=== PATIENT | male | born 1965 | race American Indian/Alaskan Native ===

== ENCOUNTER 2016-07-04 20:48 | Emergency (ER) | payer BC ==
--- NOTE | 2016-07-04 23:00 | Cat Scan Report ---
FINAL REPORT PROCEDURE: CT HEAD/BRAIN WO CON TECHNIQUE: Computerized tomography of the head was performed without contrast material. HISTORY: headache, eye pain COMPARISON: No prior studies are available for comparison. FINDINGS: No CT evidence of intracranial mass, hemorrhage, acute territorial infarction, or hydrocephalus. The intracranial arteries are symmetric in density. Calvarium is intact. The visualized paranasal sinuses and mastoids are aerated. IMPRESSION: No CT evidence of acute intracranial disease process
[2016-07-05] MEDS ORDERED: TYLENOL ONE (02:03)
--- NOTE | 2016-07-05 02:12 | Emergency Department Report ---
ED Headache HPI - General Chief Complaint: Headache Stated Complaint: HEAD PAIN, LEFT EYE PAIN Time Seen by Provider: 07/05/16 01:57 Source: patient, family Exam Limitations: no limitations - History of Present Illness Initial Comments: Patient here reported headache of the roof his head since Sunday. Also said he is having pressure around his left eye and face feel achy. Pain is 6 out of 10. Denies any head injury. Denies any nausea or vomiting. Reports nasal congestion with some coughing. Patient has a history of sinusitis. He has no other medical problems. No fever or chills. Denies any shortness of breath or chest pain. Denies dizziness or blurred vision. Timing/Duration: waxing and waning, other (2 days) Quality: moderate, achy Head Injury Location: frontal, occipital Recent Head Trauma: no recent headache/trauma Modifying Factors: improves with: rest Associated Symptoms: facial pain, nasal congestion, nasal drainage, sinus infection. denies: confusion, fatigue, fever/chills, flushing, loss of consciousness, nausea/vomiting, numbness in legs/feet, rash, seizures, stiff neck, vision changes, weakness, other Allergies/Adverse Reactions: Allergies No Known Allergies Allergy (Unverified 03/02/14 12:56) Home Medications: Ambulatory Orders Cyclobenzaprine HCl [Flexeril 5mg] 5 mg PO Q8HR #30 tablet 03/02/14 HYDROcodone/APAP 5-325 [[place] 5/325] 1 each PO Q6HR PRN #20 tablet 03/02/14 Naproxen [Naprosyn] 500 mg PO BID #30 tablet 03/02/14 Fluticasone [Flonase] 1 spray NS QDAY #1 bottle 07/05/16 Loratadine [Claritin] 10 mg PO DAILY #20 tablet 07/05/16 predniSONE [Deltasone] 20 mg PO QDAY #5 tab 07/05/16 ED Review of Systems ROS: Stated complaint: HEAD PAIN, LEFT EYE PAIN Other details as noted in HPI Comment: All other systems reviewed and negative Constitutional: denies: chills, fever Eyes: denies: eye pain, eye discharge, vision change ENT: congestion. denies: ear pain, throat pain Respiratory: cough. denies: shortness of breath, SOB with exertion, SOB at rest , stridor, wheezing Cardiovascular: denies: chest pain, palpitations, edema, syncope Gastrointestinal: denies: abdominal pain, nausea, vomiting, diarrhea Musculoskeletal: denies: back pain, arthralgia Skin: denies: rash Neurological: headache. denies: weakness, numbness, paresthesias, confusion, abnormal gait, vertigo ED Past Medical Hx - Past Medical History Previous Medical History?: Yes Additional medical history: seasonal sinus - Surgical History Past Surgical History?: Yes Additional Surgical History: Left 5th digit surgical repair - Family History Family history: no significant - Social History Smoking Status: Never Smoker Substance Use Type: Alcohol - Medications Home Medications: Home Medications Medication Instructions Recorded Confirmed Last Taken Type Cyclobenzaprine HCl [Flexeril 5mg] 5 mg PO Q8HR #30 tablet 03/02/14 Unknown Rx HYDROcodone/APAP 5-325 [[place] 1 each PO Q6HR PRN #20 tablet 03/02/14 Unknown Rx 5/325] Naproxen [Naprosyn] 500 mg PO BID #30 tablet 03/02/14 Unknown Rx Fluticasone [Flonase] 1 spray NS QDAY #1 bottle 07/05/16 Unknown Rx Loratadine [Claritin] 10 mg PO DAILY #20 tablet 07/05/16 Unknown Rx predniSONE [Deltasone] 20 mg PO QDAY #5 tab 07/05/16 Unknown Rx ED Physical Exam - General Limitations: No Limitations General appearance: alert, in no apparent distress - Head Head exam: Present: atraumatic, normocephalic, normal inspection - Expanded Head Exam Expanded Head exam: Absent: laceration, abrasion, contusion, hematoma, racoon eyes, mahajan's sign, general tenderness, tenderness of temporal artery, CSF rhinorrhea , CSF otorrhea - Eye Eye exam: Present: normal appearance, PERRL, EOMI. Absent: conjunctival injection, nystagmus, periorbital swelling, periorbital tenderness Pupils: Present: normal accommodation - ENT ENT exam: Present: normal orophraynx, mucous membranes moist, normal external ear exam, other (bilateral frontal and maxillary sinuses nontender to palpate. Bilateral nasal mucosa congested with erythema and clear drainage.). Absent: TM 's normal bilaterally (bilateral TM congested without erythema.) - Neck Neck exam: Present: normal inspection, full ROM. Absent: tenderness, meningismus, lymphadenopathy - Respiratory Respiratory exam: Present: normal lung sounds bilaterally. Absent: respiratory distress - Cardiovascular Cardiovascular Exam: Present: regular rate, normal rhythm, normal heart sounds - Extremities Exam Extremities exam: Present: normal inspection, full ROM, normal capillary refill. Absent: tenderness, pedal edema, joint swelling, calf tenderness - Back Exam Back exam: Present: normal inspection, full ROM. Absent: tenderness, CVA tenderness (R), CVA tenderness (L), muscle spasm, paraspinal tenderness, vertebral tenderness, rash noted - Neurological Exam Neurological exam: Present: alert, oriented X3, normal gait, reflexes normal. Absent: motor sensory deficit - Expanded Neurological Exam Expanded Neurological exam: Absent: innattentive, memory loss-remote event, memory loss- recent event, ataxia, receptive aphasia, expressive aphasia, total aphasia, tremor, protecting the airway Patient oriented to: Present: person, place, time Speech: Present: fluid speech Cranial nerves: EOM's Intact: Normal, Gag Reflex: Normal, Nystagmus: Normal, Facial Sensation: Normal Cerebellar function: Romberg: Normal Upper motor neuron: Pronator Drift: Normal, Sensory Extinction: Normal Sensory exam: Upper Extremity Light Touch: Normal, Upper Extremity Temperature: Normal, UE 2 Point Discrimination: Normal, Lower Extremity Light Touch: Normal, Lower Extremity Temperature: Normal, LE 2 Point Discrimination: Normal Motor strength exam: RUE: 5, LUE: 5, RLE: 5, LLE: 5 DTR: bicep (R): 2+, bicep (L): 2+, tricep (R): 2+, tricep (L): 2+, knee (R): 2+ , knee (L): 2+, ankle (R): 2+, ankle (L): 2+ Best Eye Response (Benigno): (4) open spontaneously Best Motor Response ([place]): (6) obeys commands Best Verbal Response ([place]): (5) oriented Benigno Total: 15 - Psychiatric Psychiatric exam: Present: normal affect, normal mood - Skin Skin exam: Present: warm, dry, intact, normal color. Absent: rash ED Course Vital Signs 07/04/16 22:34 Temperature 99.1 F Pulse Rate 97 H Respiratory 18 Rate Blood Pressure 144/77 O2 Sat by Pulse 96 Oximetry - Reevaluation(s) Reevaluation #1: 07/05/16 02:54 Patient remained stable through the ED stay. ED Medical Decision Making - Radiology Data Radiology results: report reviewed CT scan of the head reveals no acute intracranial disease processes. - Medical Decision Making ED course: Discussed with patient that he had a sinus infection and will be treated with prednisone, Flonase and Claritin. I discussed the CT scan results with him. I instructed him that he will need to follow-up with his primary care physician if headache continues. She was understanding of discharge instructions and discharged home with prescription for prednisone, Flonase and Claritin. Critical care attestation.: If time is entered above; I have spent that time in minutes in the direct care of this critically ill patient, excluding procedure time. ED Disposition Clinical Impression: Sinus headache Acute inflammation of sinus Qualifiers: Sinusitis location: unspecified location Recurrence: not specified as recurrent Qualified Code(s): J01.90 - Acute sinusitis, unspecified Disposition: DISCHARGED TO HOME OR SELFCARE Is pt being admited?: No Does the pt Need Aspirin: No Condition: Stable Instructions: Sinusitis (ED), Acute Headache (ED) Additional Instructions: Please use saline nasal wash to flush your nose. Take medication as prescribed. Prescriptions: Loratadine [Claritin] 10 mg PO DAILY #20 tablet predniSONE [Deltasone] 20 mg PO QDAY #5 tab Fluticasone [Flonase] 1 spray NS QDAY #1 bottle Referrals: PRIMARY CAREMD [Primary Care Provider] - 07/06/16 Forms: Work/School Release Form(ED)
[2016-07-05 03:12] VITALS: BP 138/76
== END 2016-07-05 03:14 | disposition home or self-care (01) ==
LOC: ED 20:48
DX: J01.90 Acute sinusitis, unspecified (principal); R51 Headache
CPT/HCPCS: 70450

== ENCOUNTER 2019-08-06 12:02 | Emergency (ER) | payer BC ==
[2019-08-06 12:52] VITALS: BP 148/94
--- NOTE | 2019-08-06 13:00 | Event Note ---
ED Screening Note Date of service: 08/06/19 Time: 12:59 ED Screening Note: 54 y o male presents to ED cc of right big toe pain x several days He denies hx of Gout DM, injury, trauma or fall no signs of deformity to right toes, no swelling, no erythema, no laceration This initial assessment/diagnostic orders/clinical plan/treatment(s) is/are subject to change based on patients health status, clinical progression and re- assessment by fellow clinical providers in the ED. Further treatment and workup at subsequent clinical providers discretion. Patient/guardian urged not to elope from the ED as their condition may be serious if not clinically assessed and managed. Initial orders include: Referral to PCP Pt presents with a non-medical emergency Examination is normal, Vital sign are stable Pt given information for clinics to follow up with pcp for further treatment and evaluation Also discussed strict return precautions in detail with pt who verbalized understanding
== END 2019-08-06 14:02 | disposition home or self-care (01) ==
LOC: ED 12:02
DX: M79.674 Pain in right toe(s) (principal); M79.89 Other specified soft tissue disorders; Z98.890 Other specified postprocedural states
CPT/HCPCS: 99282

== ENCOUNTER 2022-01-27 15:07 | Emergency (ER) | payer BC ==
[2022-01-27] MEDS ORDERED: ACETAMINOPHEN 325 MG TAB PO ONE (21:29)
[2022-01-27] MEDS ORDERED: IBUPROFEN 400 MG TAB PO ONE (21:29)
--- NOTE | 2022-01-27 21:34 | Emergency Department Report ---
ED General Adult HPI - General Chief complaint: Extremity Injury, Lower Stated complaint: FOOT PAIN PUI?: No Time Seen by Provider: 01/27/22 21:16 Source: patient, RN notes reviewed Mode of arrival: Ambulatory Limitations: No Limitations - History of Present Illness Initial comments: The patient was evaluated in the emergency department for symptoms described in the history of present illness. He/she was evaluated in the context of the global COVID-19 pandemic, which necessitated consideration that the patient might be at risk for infection with the virus that causes COVID-19. Institutional protocols and algorithms that pertain to the evaluation of patients at risk for COVID-19 are in a state of rapid change based on in formation released by regulatory bodies including the CDC and federal and state organizations. These policies and algorithms were followed during the patient's care in the emergency department. Please note that these policies, procedures and recommendations changed on a rapid basis. 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 Pain is aching, increases with palpation, range of motion, decreases with rest in certain positions. He has taken Tylenol [id number] for pain. He denies additional injuries and complaints. -: week(s) Location: left, right, lower extremity Radiation: non-radiation Severity scale (0 -10): 8 Quality: aching Consistency: intermittent Improves with: rest Worsens with: movement Associated Symptoms: denies other symptoms - Related Data Previous Rx's Medication Instructions Recorded Last Taken Type Fluticasone [Flonase] 1 spray NS QDAY #1 bottle 07/05/16 Unknown Rx Loratadine (Nf) [Claritin] 10 mg PO DAILY #20 tablet 07/05/16 Unknown Rx predniSONE [Deltasone] 20 mg PO QDAY #5 tab 07/05/16 Unknown Rx Acetaminophen [Non-Aspirin Extra 500 mg PO Q6HR PRN #30 tablet 01/27/22 Unknown Rx Strength] Ibuprofen [Motrin] 600 mg PO Q8H PRN #30 tablet 01/27/22 Unknown Rx Allergies Allergy/AdvReac Type Severity Reaction Status Date / Time No Known Allergies Allergy Verified 01/27/22 16:21 ED Review of Systems ROS: Stated complaint: FOOT PAIN Other details as noted in HPI Comment: All other systems reviewed and negative Musculoskeletal: myalgia ED Past Medical Hx - Past Medical History Additional medical history: seasonal sinus - Surgical History Additional Surgical History: Left 5th digit surgical repair - Social History Smoking Status: Never Smoker Substance Use Type: None - Medications Home Medications: Home Medications Medication Instructions Recorded Confirmed Last Taken Type Fluticasone [Flonase] 1 spray NS QDAY #1 bottle 07/05/16 Unknown Rx Loratadine (Nf) [Claritin] 10 mg PO DAILY #20 tablet 07/05/16 Unknown Rx predniSONE [Deltasone] 20 mg PO QDAY #5 tab 07/05/16 Unknown Rx Acetaminophen [Non-Aspirin Extra 500 mg PO Q6HR PRN #30 tablet 01/27/22 Unknown Rx Strength] Ibuprofen [Motrin] 600 mg PO Q8H PRN #30 tablet 01/27/22 Unknown Rx ED Physical Exam - General Limitations: No Limitations General appearance: alert, in no apparent distress, obese - Head Head exam: Present: atraumatic, normocephalic - Eye Eye exam: Present: normal appearance, EOMI. Absent: nystagmus - ENT ENT exam: Present: normal exam, normal orophraynx, mucous membranes moist, normal external ear exam - Neck Neck exam: Present: normal inspection, full ROM. Absent: tenderness, meningismus - Respiratory Respiratory exam: Present: normal lung sounds bilaterally. Absent: respiratory distress, wheezes, rales, rhonchi, stridor, decreased breath sounds - Cardiovascular Cardiovascular Exam: Present: regular rate, normal rhythm, normal heart sounds. Absent: bradycardia, tachycardia, irregular rhythm, systolic murmur, diastolic murmur, rubs, gallop - GI/Abdominal GI/Abdominal exam: Present: soft. Absent: distended, tenderness, guarding, rebound, rigid, pulsatile mass - Rectal Rectal exam: Present: deferred - Extremities Exam Extremities exam: Present: normal inspection, full ROM, tenderness (There is bilateral plantar foot tenderness. There is no redness, pus, streaking. Muscular compartments are soft), other (2+ pulses noted in the bilateral upper and lower extremities. There is no palpable cord. negative Homans sign. Muscular compartments are soft. The pelvis is stable.). Absent: pedal edema, calf tenderness - Back Exam Back exam: Present: normal inspection, full ROM. Absent: tenderness, CVA tender ness (R), CVA tenderness (L), muscle spasm, paraspinal tenderness, vertebral tenderness - Neurological Exam Neurological exam: Present: alert, oriented X3, normal gait, other (No facial droop. Tongue midline. Extraocular movements intact bilaterally. Facial sensation intact to light touch in V1, V2, V3 distribution bilaterally. 5 and a 5 strength in 4 extremities. Sensation intact to light touch in 4 extremities.). Absent: motor sensory deficit - Psychiatric Psychiatric exam: Present: normal affect, normal mood - Skin Skin exam: Present: warm, dry, intact, normal color. 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 Rest, ice, compression, elevation, weightbearing as tolerated, supportive footwear. Patient does not appear to have an emergent medical condition present at this time. All questions answered. Return precautions are reviewed. Discussed therapies, remedies, rehab techniques. Patient endorses understanding. Critical care attestation.: If time is entered above; I have spent that time in minutes in the direct care of this critically ill patient, excluding procedure time. ED Disposition Clinical Impression: Foot pain, bilateral Disposition: HOME / SELF CARE / HOMELESS Is pt being admited?: No Does the pt Need Aspirin: No Condition: Good Instructions: Plantar Fasciitis Additional Instructions: Patient most likely has plantar fasciitis. Patient may look up exercises to rehabilitate plantar fasciitis on YouTube. Also recommend supportive footwear, or purchase of heel inserts. Patient may take a 5 to 10-minute break once every 90 to 120 minutes while at work. Alternate ice packs and heat packs as needed for physical pain. Take the prescribed pain medications as needed and directed. Follow-up with a primary care doctor, die maker bench stamping, or physical therapist, for further outpatient management and rehabilitations for presumed plantar fasciitis. Please return to the emergency room right away with new pain, worsened pain, migration of pain, projectile vomiting, change in mental status, confusion, inability tolerate liquid feeds, new, worsened or different symptoms not present on the initial emergency room evaluation Referrals: VINOD FLORES DPM [Staff Physician] - 3-5 Days [facility] [Provider Group] - 3-5 Days Forms: Work/School Release Form(ED)
[2022-01-27 22:15] VITALS: BP 141/92
== END 2022-01-27 22:15 | disposition home or self-care (01) ==
LOC: ED 15:07
DX: M79.672 Pain in left foot (principal); M79.671 Pain in right foot
CPT/HCPCS: 99282